=== PATIENT | male | born 1970 ===

== ENCOUNTER 2018-07-05 10:30 | Outpatient (CLI) | payer OTHER ==
[~2018-07-05] VITALS: Ht 182.9 cm; Wt 97.5 kg
== END 2018-07-05 10:45 | disposition home or self-care (01) ==
LOC: OFIC 805 10:30
DX: R13.19 Other dysphagia (principal); J31.2 Chronic pharyngitis; J31.0 Chronic rhinitis; K21.9 Gastro-esophageal reflux disease without esophagitis